=== PATIENT | female | born 1965 | race Two or more races ===

== ENCOUNTER → 2016-09-13 | Outpatient (CLI) | payer OTHER ==
[~2016-09-13] MED LIST: ALBUTEROL17 GM; AMOXIL500 M1; ANTIVERT PO; ASPIRIN PO; ATENOLOL-CHLORT1 TA2 PO; ATIVAN PO; ATIVAN0.5 M1 PO; BENTYL20 MG PO; BENZONATATE PO; BP MED; FLEXERIL10 MG PO; IBUPROFEN PO; IBUPROFEN800 MG PO; K-DUR20 ME1 PO; LOMOTIL TABLET1 TAB PO; LOPID600 MG PO; LORTAB 10-5001 EACH PO; MIRALAX17 GM PO; MOBIC PO; OMEPRAZOLE20 M2 PO; PERCOCET PO; PERCOCET5/325 PO; PHENERGAN25 M1 PO; PREDNISONE PO; PREVACID PO; PRILOSEC20 M1 PO; PROZAC PO; ROBAXIN 750750 M1 DOB; ROBITUSSIN A-C S5 ML PO; STOOL SOFTENER100 M1 PO; TENORMIN50 MG PO; TYLENOL #3 PO; ULTRAM PO; VICODIN 5/500 T1 TAB PO; VICODIN PO; VOLTAREN75 MG PO; ZIAC1 TAB 5/6. PO
--- NOTE | ~2016-09-13 | CR229 ---
[facility] A Service of [facility] & [facility] RADIOLOGY TEXT RESULTS PATIENT: FRED YUAN LOCATION: [facility] : 67 UNIT #: [id number] AGE: [address]: KAY TERRAZAS MD SEX: F ORDER DR: [id number] [facility] [address] [place], [place] [address] [id number] O MR#: [id number] Acc #: [id number] NAME: FRED YUAN : 1965 SEX: F STUDY DATE/TIME: 09/13/2016 12:25 UNIT: [facility] ROOM: STUDY DESCRIPTION: CR Shoulder Min 2 View Lt Attending Physician: Kay Terrazas M.D. Referring Physician: Kay Terrazas M.D. Ordering Physician: Kay Terrazas M.D. Primary Care Physician: Kay Terrazas M.D. MEDICAL IMAGING REPORT This report is preliminary unless electronic signature is present EXAM Left shoulder 3 views INDICATION 51-year-old female left shoulder pain for 2 months. COMPARISON No comparisons. FINDINGS There is no fracture or dislocation. There is inferior spurring along the acromion just after the AC joint. Soft tissue structures unremarkable. IMPRESSION There is spurring along the inferior margin of the acromion just after the AC joint. Dictated by... Alex Perry M.D. THIS IS AN ELECTRONICALLY VERIFIED REPORT Alex Perry M.D. at 09/14/2016 7:53 AM DOUG/abhinav TD: 09/13/2016 14:07 JOB #: [id number] MEDICAL IMAGING REPORT Page 1 of 1 COPY
== END | disposition home or self-care (01) ==
LOC: CRAD 12:09
DX: M25.512 Pain in left shoulder (principal); M75.82 Other shoulder lesions, left shoulder
CPT/HCPCS: 73030

== ENCOUNTER → 2016-09-28 | Outpatient (CLI) | payer OTHER ==
--- NOTE | ~2016-09-28 | US5 ---
[facility] A Service of [facility] RADIOLOGY TEXT RESULTS PATIENT: FRED YUAN LOCATION: [facility] : 67 UNIT #: [id number] AGE: [address]: KAY MICHEL MD SEX: F ORDER DR: [id number] [id number] [place], [place] [address] [id number] O MR#: [id number] Acc #: [id number] NAME: FRED YUAN : 1965 SEX: F STUDY DATE/TIME: 09/28/2016 10:51 UNIT: [facility] ROOM: STUDY DESCRIPTION: US Abdominal Complete Attending Physician: Kay Michel M.D. Referring Physician: Kay Michel M.D. Ordering Physician: Kay Michel M.D. Primary Care Physician: Kay Michel M.D. MEDICAL IMAGING REPORT This report is preliminary unless electronic signature is present EXAM Abdominal ultrasound 09/28/2016 INDICATIONS Abdominal pain for the past week. PROCEDURE Singh-scale and Doppler imaging of the abdomen COMPARISON CT from 03/31/2016 FINDINGS Visualized portions of pancreas unremarkable. Liver has increased echotexture. Submitted images abdominal aorta and inferior vena cava unremarkable. Common duct measures 3-4 mm. Unremarkable gallbladder. The left kidney measures 10.4 cm. Spleen measures 9.8 cm. The right kidney measures 8.7 cm. No hydronephrosis. Liver measures 16.6 cm. IMPRESSION Increased liver echotexture most in keeping with steatosis. Otherwise negative abdominal ultrasound. Dictated by... Nick Chicas M.D. THIS IS AN ELECTRONICALLY VERIFIED REPORT Nick Chicas M.D. at 09/29/2016 7:07 AM Danyell TD: 09/28/2016 14:58 JOB #: [id number] [facility] A Service of [facility] RADIOLOGY TEXT RESULTS PATIENT: FRED YUAN LOCATION: [facility] : 67 UNIT #: [id number] AGE: [address]: KAY MICHEL MD SEX: F ORDER DR: MEDICAL IMAGING REPORT Page 1 of 1 COPY
== END | disposition home or self-care (01) ==
LOC: CGUS 10:04
DX: R10.811 Right upper quadrant abdominal tenderness (principal)
CPT/HCPCS: 76700